=== PATIENT | male | born 1970 | race Caucasian/White ===

== ENCOUNTER 2020-01-28 07:23 | Outpatient (CLI) | payer BC, OTHER ==
[2020-01-29 12:05] LABS: SARS-CoV-2 MS2 Positive; SARS-CoV-2 N Gene Negative; SARS-CoV-2 S Gene Negative; SARS-CoV-2 by NAA Not Detected (NotDetected); SARS-CoV-2 orf1ab Negative
== END 2020-01-28 07:24 | disposition home or self-care (01) ==
LOC: LABBT 07:23
PROVIDERS: ATTEND Internal Medicine Gastroenterology
DX: Z86.010 Personal history of colon polyps (principal); Z80.3 Family history of malignant neoplasm of breast; Z20.828 Contact with and (suspected) exposure to other viral communicable diseases
CPT/HCPCS: 87635; U0003

== ENCOUNTER 2020-02-02 09:28 | Day surgery (SDC) | payer BC ==
[2020-02-01 09:38] VITALS: BMI 28.1
[~2020-02-02 09:28] MED LIST: Lidocaine 1% PF 5 ML VIAL ONE; PROPOFOL 200 MG/20 ML VIAL ONE
--- NOTE | 2020-02-02 12:30 | OP ---
DATE OF PROCEDURE: 02/02/2020 PROCEDURE PERFORMED: Colonoscopy. PREMEDICATION: Given by Anesthesiology Department. PREPROCEDURE DIAGNOSES: 1. Personal history of colon polyp. 2. Family history of colon cancer (mother). POSTPROCEDURE DIAGNOSES: 1. Mild sigmoid diverticulosis coli. 2. Otherwise, normal colon exam. PROCEDURE IN DETAIL: Written consents were obtained prior to procedure. After adequate sedation, a rectal exam was performed and was normal. The endoscope was advanced to the cecum. The quality of the bowel prep was good. The cecum, ascending colon, hepatic flexure, transverse colon, splenic flexure, and descending colon appeared normal. Few small diverticula were noted in the sigmoid colon. The rectosigmoid colon appeared normal. Retroflexion was normal. The patient tolerated the procedure well. ASSESSMENT: 1. Mild sigmoid diverticulosis. 2. Otherwise, normal colon exam. RECOMMENDATIONS: Repeat colon surveillance exam in 5 years. Job ID: [id number]
== END 2020-02-02 12:55 | disposition home or self-care (01) ==
LOC: SDC 09:28
PROVIDERS: ATTEND Internal Medicine Gastroenterology
PROC: 0DJD8ZZ Inspection of Lower Intestinal Tract, Via Natural or Artificial Opening Endoscopic (ICD-10-PCS; principal; 2020-02-02)
DX: Z12.11 Encounter for screening for malignant neoplasm of colon (principal); K57.30 Diverticulosis of large intestine without perforation or abscess without bleeding; I25.10 Atherosclerotic heart disease of native coronary artery without angina pectoris; E11.9 Type 2 diabetes mellitus without complications; I10 Essential (primary) hypertension; E78.00 Pure hypercholesterolemia, unspecified; Z86.010 Personal history of colon polyps; Z80.0 Family history of malignant neoplasm of digestive organs; Z79.82 Long term (current) use of aspirin; Z79.84 Long term (current) use of oral hypoglycemic drugs; Z79.899 Other long term (current) drug therapy; Z87.891 Personal history of nicotine dependence
CPT/HCPCS: J2704